=== PATIENT | female | born 1985 | race Caucasian/White ===

== ENCOUNTER → 2017-11-17 13:57 | Outpatient (CLI) | payer BC, OTHER, SELFPAY ==
[2017-11-21 20:08] LABS: HPV Genotype 16, Aptima Negative (Negative)
[2017-11-24 13:02] LABS: HPV APTIMA, High Risk Positive (Negative); HPV Genotype 18,45 Aptima Negative (Negative)
== END ==
PROVIDERS: Visit Provider Obstetrics & Gynecology
DX: Z12.4 Encounter for screening for malignant neoplasm of cervix (principal)
CPT/HCPCS: 88175; G0145

== ENCOUNTER → 2018-01-15 14:03 | Outpatient (CLI) | payer BC, OTHER, SELFPAY ==
--- NOTE | 2018-01-15 | CER_PTH ---
PATIENT: DAWN RICHARDSON LOC: [facility] U#:[id number] AGE/SX: 39/F ROOM: RE01/15/[address]: Dr. Simona Gordon MD : 1985 BED: DIS: SPEC #: [id number] RECD: 01/15/18 14:23 STATUS: JOSH IZAIAH #: [id number] CONRAD: 01/15/18 00:[address]: Simona Britt DEPT: SURGICAL PATHOLOGY RECD BY: Kiel Jovel Tissues: A - Uterine cervix, NOS B - Endocervical Procedures: Surgery Specimen Level IV HEADER OPERATION: Colposcopy with biopsy PRE-OP DIAGNOSIS: Positive HR/HPV; prior history of TIFFANI I TISSUE SUBMITTED: A ? Cervical biopsy, B - ECC MICROSCOPIC DIAGNOSIS A. 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 Chronic inflammation. See comment. B. ECC: Scant fragment of benign endocervical epithelium, blood and mucous, negative for dysplasia. RUSLAN:tanna 01/16/18 COMMENT A. Results from immunohistochemistry ([id number]) for surrogate HPV marker (p16) will be reported separately. Please make reference to previous specimen ([id number]) cervix at 6 o?clock, biopsy and cervix at 12 o?clock, biopsy with diagnosis of HPV change/TIFFANI I and endocervical curettings with diagnosis of disarticulated fragments of squamous epithelium with HPV change. MICROSCOPIC DESCRIPTION Slides are reviewed. GROSS DESCRIPTION A - Received in fixative is one container labeled with the patient's name and designated cervical biopsy. The specimen consists of one irregular fragment of light morley soft tissue that measures 0.3 x 0.3 x 0.1 cm. The specimen is totally submitted in one cassette. B - Received in fixative is one container labeled with the patient's name and designated ECC. The specimen consists of multiple irregular fragments of morley mucoid tissue that in aggregate measure 0.5 x 0.5 x 0.1 cm. The specimen is totally submitted in one cassette. / SJ:tanna 01/15/18 TC:5 CPT: 10672 x2
--- NOTE | 2018-01-15 | IMM_PTH ---
PATIENT: DAWN RICHARDSON LOC: [facility] U#:[id number] AGE/SX: 39/F ROOM: RE01/15/[address]: Dr. Simona Gordon MD : 1985 BED: DIS: SPEC #: [id number] RECD: 01/16/18 11:24 STATUS: JOSH IZAIAH #: [id number] CONRAD: 01/15/18 00:[address]: Simona Britt DEPT: IMMUNOHISTOCHEMISTRY RECD BY: Corie Conklin Tissues: A - Uterine cervix, NOS Procedures: p16 (initial) KI-67 (add) PHYSICIAN & INSTITUTION [place] [id number] SPECIMEN INFORMATION: Tissue Source: A ? Cervical biopsy Clinical Info: Positive HR/HPV; prior history TIFFANI I Specimen Number: [id number] CPT code: 79013, 29672 METHODOLOGY: Deparaffinized sections of prefer/formalin-fixed tissue or PAP/DQ stained slides are incubated with monoclonal/polyclonal antibodies/oligonucleotide probes. Localization is made via biotin free immunoperoxidase method. Appropriate controls are performed and reacted as expected. Results on target cell population are indicated in the following table: RESULTS: ANTIBODY / CLONE RESULT Block A P16 (E6H4) negative Ki-67 (30-9) positive, low These tests were developed and their performance characteristics determined by [facility]. They may not have been cleared or approved by the [place]. Food and Drug Administration. The FDA has determined that such clearance or approval is not necessary. INTERPRETATION: A. Cervical biopsy: Mild squamous dysplasia. RUSLAN:tanna 01/16/18
== END ==
PROVIDERS: Visit Provider Obstetrics & Gynecology
DX: N87.0 Mild cervical dysplasia (principal); R87.810 Cervical high risk human papillomavirus (HPV) DNA test positive
CPT/HCPCS: 88305; 88341; 88342

== ENCOUNTER → 2018-07-31 15:47 | Outpatient (CLI) | payer BC, OTHER, SELFPAY ==
[2018-08-06 14:57] LABS: HPV APTIMA, High Risk Positive (Negative)
== END ==
PROVIDERS: Referring Provider Obstetrics & Gynecology; Visit Provider Obstetrics & Gynecology
DX: Z12.4 Encounter for screening for malignant neoplasm of cervix (principal)
CPT/HCPCS: 87624; 88175; G0145

== ENCOUNTER → 2019-02-01 | Outpatient (CLI) | payer BC, SELFPAY ==
[2019-02-07 14:03] LABS: HPV APTIMA, High Risk Negative (Negative)
== END | disposition home or self-care (01) ==
LOC: LABSPEC 10:19
PROVIDERS: Visit Provider Obstetrics & Gynecology
DX: Z12.4 Encounter for screening for malignant neoplasm of cervix (principal)
CPT/HCPCS: 87624; 88175; G0145

== ENCOUNTER → 2020-03-20 08:36 | Outpatient (CLI) | payer BC, SELFPAY ==
[2020-03-20 09:16] LABS: Absolute Lymphocyte Count 2.38 X10^3/uL (0.83-4.51); Absolute Neutrophil Count 5.1 X10^3/uL (2.0-7.7); Basophil# 0.09 X10^3/uL; Basophil% 1.1 % (0-1); Eosinophil# 0.31 X10^3/uL; Eosinophils% 3.7 % (0-5); Hemoglobin 13.3 g/dL (12.0-15.0); Lymphocyte # 2.38 X10^3/ul (4.0); Lymphocyte % 28.3 % (19-41); Mean Corp Hgb Conc 34.1 g/dL (32-36); Mean Corpuscular Hgb 30.6 pg (27.0-32.0); Mean Corpuscular Volume 89.9 fL (81-99); Mean Platelet Vol. 9.5 fl (6.2-12.0); Monocyte# 0.47 X10^3/uL; Monocyte% 5.6 % (0-10); NRBC Flagged by Analyzer 0 % (0-5); Neutrophil # 5.12 X10^3/uL (2.7-7.7); Neutrophil % 60.9 % (47-70); Platelet Count 305 K/mm3 (150-450); RBC Distribution Width CV 12.4 % (11.6-14.6); RBC Distribution Width SD 40.8 fl (35.1-43.9); Red Blood Count 4.34 M/mm3 (4.2-5.4); White Blood Count 8.4 K/mm3 (4.4-11.0)
[2020-03-20 10:33] LABS: ALB/GLOB Ratio 1.3 RATIO (0.9-2.4); AST(SGOT) 17 U/L (15-37); Alanine Aminotransfer ALT/SGPT 22 U/L (13-56); Alkaline Phosphatase 40 U/L (45-117); Anion Gap 3 (5-15); BUN 10 mg/dL (7-18); BUN/Creat Ratio 11.1 RATIO (10-20); Calcium,Total 8.6 mg/dL (8.5-10.1); Chloride 110 mmol/L (98-107); Cholesterol 163 mg/dL (200); EST Glomerular Filtration Rate 75 mL/min (>60); Est Glom Filt Rate - Afr Amer 91 mL/min (>60); Estradiol 150.6 pg/mL; Follicle Stimulating Hormone 16.8 mIU/mL; Free T3 2.5 pg/mL (2.18-3.98); Globulin 3.1 g/dL (2.2-4.2); Glucose 82 mg/dL (74-106); High Density Lipoprotein 54 mg/dL; Potassium 3.7 mmol/L (3.5-5.1); Protein, Total 7.1 g/dL (6.4-8.2); Sodium Level 141 mmol/L (136-145); T4 Free Direct 1.06 ng/dL (0.76-1.46); Thyroid Stim Hormone (TSH) 2.64 uIU/mL (0.358-3.74); Triglycerides 119 mg/dL; Very Low Density Lipoprotein 24 mg/dL (5-40)
[2020-03-20 11:12] LABS: T3 Total - Triiodothyronine 1.09 ng/mL (0.6-1.81)
[2020-03-23 10:06] LABS: Anti-Mullerian Hormone,Serum 0.399 ng/mL (.)
== END ==
PROVIDERS: Visit Provider Obstetrics & Gynecology
DX: N92.6 Irregular menstruation, unspecified (principal); E28.8 Other ovarian dysfunction
CPT/HCPCS: 36415; 80053; 80061; 82627; 82670; 83001; 83516; 84270; 84403; 84439; 84443; 84480; 84481; 85025; 82626

== ENCOUNTER 2021-08-21 10:20 | Outpatient (CLI) | payer BC, SELFPAY ==
[2021-08-24 18:58] LABS: HPV APTIMA, High Risk Negative (Negative)
== END 2021-08-21 23:59 | disposition short-term general hospital (02) ==
LOC: LABSPEC 10:33
PROVIDERS: Visit Provider Obstetrics & Gynecology
DX: Z12.4 Encounter for screening for malignant neoplasm of cervix (principal)
CPT/HCPCS: 87624; 88175; G0145

== ENCOUNTER → 2025-07-20 | Outpatient (CLI) | payer OTHER, BC, SELFPAY ==
--- NOTE | 2025-07-20 10:28 | RAD_ITS ---
PROCEDURE: WRIST MIN 3 VIEWS 07/20/2025 REASON FOR EXAM: PAIN. PATIENT FELL 3 WEEKS AGO. PAIN IN THE REGION OF THE SCAPHOID. TECHNIQUE: Procedure Code: RADWR Modality: DX Procedure: WRIST MIN 3 VIEWS COMPARISON: No relevant prior. FINDINGS: Bones: A small focal area of periosteal reaction is noted along the lateral margin of the radial styloid. Joints: No subluxations or dislocations. Soft tissues: Unremarkable. RAD/Wrist min 3 Views IMPRESSION: No acute or subacute fractures are identified. However, a small focal area of periosteal reaction is noted along the radial styloid. This may be related to remote trauma. Clinical correlation recommend ed. Reading Location: [facility]
--- OUTSIDE RECORDS SUMMARY | 2025-07-20 10:49 | XMS RPT_ITS | CCD ---
Author Organization [facility] Inform ion Partnership [facility] Care Team Providers Care Extension Service Supervisor Name Role Phone Gertrude VELARDE, Luma Chiang Unavailable [phone] Luís Castillo MD Unavailable [phone] Guero BRAUN, Amish Jefferson Primary Care Provider [phone] Unavailable Primary Care Provider UnavailMELODY Cortes Referring Unavailable Luma Loredo RN Unavailable COREY MUELLER Attending Unavailable Allergies Allergy Classification Reported Allergen(s) Allergy Type Date of Onset Reaction(s) Facility (1 source) ALLERGIES NOT ON FILE; Translations: [ALLERGIES NOT ON FILE] Propensity to adverse reactions (disorder) [facility] 2 Repository Medications Current Medications Medication Drug Class(es) Dates Sig (Normalized) Sig (Original) MULTI-VITAMIN ORAL (3 sources) take 1 tablet by luda th once daily MULTI-VITAMIN ORAL Indications: Left breast cancer with T3 tumor, >5 cm in greatest dimension (HCC) Take 1 tablet by mouth once daily. Active take 1 tablet by mouth once nathen y MULTI-VITAMIN ORAL Indications: Left breast cancer with T3 tumor, >5 cm in greatest dimension (HCC) Take 1 tablet by mouth once daily. 0 Active Comment on above: Take 1 tablet by luda th once daily. Problems Active Problems Problem Classification Problem Date Documented Da te Episodic/Chronic Cancer of breast (7 sources) Malignant neoplasm of upper-outer quadrant of female breast; Translations: [Malignant neoplasm of upper-outer quadrant of left female breast] Onset: 01-31-2015 Chronic Cancer of breast (2 sources) History of malignant neoplasm of breast; Translations: [Personal history of malignant neoplasm of breast] 07-17-2023 Episodic Other connective tissue disease (2 sources) Pain in right foot; Translations: [Pain in right foot] Onset: 12-01-2023 12-01-2023 Episodic Other connective tissue disease (1 source) Pain in right foot; Translations: [Pain in right foot] Onset: 12-01-2023 Episodic Other eye disorders (3 sources) Bilateral vitreous floaters; Translations: [Other vitreous opacities, bilateral] Onset: 01-13-2019 01-13-2019 Chronic Past or Other Problems Problem Classification Problem Date Documented Date Episodic/Chronic Blindness and vision defects (6 sources) Bilateral myopia of eyes; Translations: [Myopia, bilateral] Onset: 04-05-2017 04-05-2017 Episodic Fracture of upper limb (1 source) Closed fracture of base of right fifth metacarpal; Translations: [Nondisplaced fracture of base of fifth metacarpal bone, right hand, initial encounter for closed fracture] Onset: 03-18-2016 Resolved: 02-09-2020 02-09-2020 Episodic Nonmalignant breast conditions (1 source) Lump in left breast; Translations: [Unspecified lump in the left breast, unspecified quadrant] Onset: 12-22-2014 Resolved: 02-09-2020 02-09-2020 Episodic Other eye disorders (3 sources) Tear film insufficiency; Translations: [Dry eye syndrome of bilateral lacrimal glands] Onset: 01-13-2019 01-13-2019 Episodic Residual codes; unclassified (3 sources) Patient encounter status; Translations: [Encounter for prophylactic removal of breast] Onset: 02-23-2015 02-23-2015 Episodic Residual codes; unclassified (3 sources) History of photorefractive keratectomy; Translations: [Other specified postprocedural states] Onset: 05-10-2017 01-19-2020 Episodic Residual codes; unclassified (1 source) Postoperative state; Translations: [Other specified postprocedural states] Onset: 04-29-2015 Resolved: 02-09-2020 02-09-2020 Episodic Results Test Name Value Interpretation Reference Range Facil fiona PETEROVSFuentes 2024 CNOVSP Visit (SP) Office (HEMAWS) DAWN RICHARDSON ([id number]) 1985 F Date Time Provider Department 07/16/24 8:00 AM COREY MUELLER During your visit today, we recorded the following information about you: Temperature Pulse Blood pressure Weight 98.1 degrees 72/minute 140/96 77.8 kg Corey Mueller APRN.CNP 2024 10:59 AM Signed Chief Complaint Patient presents with: Established Patient HPI: Dawn Richardson is a 39 year old female who presents here today for follow up breast cancer. Per Dr. Tapia's previous note: H/o appreciated a mass in her left breast May 2014. Was on OCPs. Biopsy 12/22/2014: Invasive ductal carcinoma, nuclear grade 2. ER/VA (>95%/72%, both moderate) HER 1-2+; FISH equivocal. MRI revealed additional suspicious areas in left AND right breast. Genetic testing negative. Oncotyping: Low Risk, Score: 19 (low end of Intermediate Range) S/p bilateral nipple sparing mastectomy (prophylactic R) and [facility]. S/p bilateral tissue cmo exchange to implant performed on 06/30/[address] Castillo's note: There is concern related to her young age, but her Recurrence Score is the lowest possible in the intermediate range. We discussed the options of chemotherapy followed by endocrine therapy, endocrine therapy alone with tamoxifen, or endocrine therapy alone with ovarian suppression + aromatase inhibitor. As her tumor is at the lowest end of the intermediate risk range the value of chemotherapy would be small, and as the TEXT/SOFT data indicate that tamoxifen alone provides an outcome similar to that of ovarian suppression + AI in low risk women, a mutual decision was made to proceed with treatment with endocrine therapy alone. We discussed her interrupting tamoxifen therapy in 5 years in order to attempt . Previous therapy:tamoxifen. Began 02/2015 Completed 5 years of therapy. No new concerns today. Appetite:It's great. Energy level:It's good. works FT-now on day shift Denies fevers or recent illness. Resp:denies cough or sob Cardiac:denies chest pain/palpitations GI:deneis abd pain, n/v, moving bowels regularly :denies dysuria/hematuria Extrem:denies pain to back/bones/joints Endo:denies hot flashes Neuro:denies symptoms of neuropathy Skin:denies rashes/lesions Heme:denies bleeding, LMP-they come when they want. Due for WEATHER STRIP INSTALLER. The ROS is otherwise negative. Past medical history, appointments, medications, allergies reviewed. No changes. EXAM: BP 140/96 Pulse 72 Temp 36.7 ?C (98.1 ?F) (Temporal) Wt 77.8 kg (171 lb 8.3 oz) LMP 03/09/2016 SpO2 99% BMI 24.61 kg/m? APPEARANCE Well appearing, alert, in no acute distress, well-hydrated, well nourished. HEART RRR with normal S1 and S2, no murmurs LUNG clear to auscultation BREAST FEMALE b/l recon/implants, no surrounding mass/nodule LYMPH NODES No cervical lymphadenopathy, No supraclavicular lymphadenopathy, and No axillary lymphadenopathy. ABDOMEN bowel sounds normoactive, soft, non-tender EXTREMITIES No edema NEURO Awake, alert and oriented x 3, Normal gait, and No involuntary motions. SKIN Skin color, texture, turgor normal, no suspicious rashes or lesions ASSESSMENT/PLAN: 1. Encounter for follow-up surveillance of breast cancer - ICD9: V67.9, V10.3, ICD10: Z08, Z85.3 Pathologic Stage IA ([id number]) ER+, VA+, HER2-negative Grade 2 invasive ductal carcinoma. - No concerning findings on exam. - Tamoxifen-tolerated well. Completed 5 years of treatment. - Follow up with WEATHER STRIP INSTALLER. - Follow up in one year. - Pt. aware to call office with any questions/concerns. The sensitive examination was discussed with the Patient or Patient's Authorized Osteopathic Resident. As applicable, any other physician, advance practice provider, medical student, or other health professional student that will be observing or involved in the sensitive examination for educational or training purposes was discussed with the Patient or Authorized Osteopathic Resident. The Patient or Authorized Osteopathic Resident has agreed to proceed with the sensitive examination. (Sensitive examination includes inspection and/or palpation of the breasts, pelvis, prostate and anorectal regions) The patient indicates understanding of these issues and agrees with the plan. All documentation from previous visit of 07/17/23-Dr. Tapia/myself was copied and pasted, documentation has been reviewed and edited as necessary for today's visit. Corey Mueller APRN.BULL FIDDLE PLAYER Allergies As of Date: 2024 (No Known Allergies) Date Reviewed: 2024 Reviewed by: Corey Mueller APRN.BULL FIDDLE PLAYER - Fully Assessed Reason for Visit: Established Patient [175] Primary Visit Diagnosis:Encounter for follow-up surveillance of breast cancer [Z08, Z85.3] Follow-up and Disposit (more content not included)... Normal [facility] XR FOOT RIGHT 3+ VIEWSon XR FOOT RIGHT 3+ VIEWS Interpreted By: Dixon Neves, STUDY: XR FOOT RIGHT 3+ VIEWS; ; 12/01/2023 4:19 pm INDICATION: Signs/Symptoms:RIGHT FOOT PAIN. COMPARISON: None. ACCESSION NUMBER(S): [id number] ORDERING CLINICIAN: MELODY SANCHEZ FINDINGS: Three views of the right foot were provided. No acute fracture or malalignment. 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 Prominent posterior process of the calcaneus/os trigonum. Small plantar calcaneal spur. Soft tissues are unremarkable. IMPRESSION: 1. No acute osseous abnormality of the right foot. 2. Chronic findings as above. MACRO: None Signed by: Dixon Neves 12/05/2023 1:58 PM Dictation workstation: [id number] [facility] Comment on above: Order Comment: STANDING PAP IG HPV APTIMA 16/18,45on 08-24-2021 ADEQ Comment Normal . [facility] Comment on above: Order Comment: CYTOLOGY INFORMATION: - CLINICAL INFORMATION: ANNUAL - Non - DATE LMP/MENOPAUSE: 08/08/21 LMP - COLLECTION VIAL: Thin Prep Vial - WEATHER STRIP INSTALLER SOURCE: CERVICAL/ENDOCERVICAL - COLLECTION TECHNIQUE: BRUSH/SPATULA Specimen Comment: [id number] Specimen Comment: No. of containers..01 ThinPrep Vial Result Comment: Sati sfactory for evaluation. Endocervical and/or squamous metaplastic cells (endocervical component) are present. Performed By: #### L 7400.0280 #### [facility] [address] [place], [place], [address] COMMENT Comment Normal . [facility] Comment on above: Order Comment: CYTOLOGY INFORMATION: - CLINICAL INFORMATION: ANNUAL - Non - DATE LMP/MENOPAUSE: 08/08/21 LMP - COLLECTION VIAL: Thin Prep Vial - WEATHER STRIP INSTALLER SOURCE: CERVICAL/ENDOCERVICAL - COLLECTION TECHNIQUE: BRUSH/SPATULA Specimen Comment: [id number] Specimen Comment: No. of containers..01 ThinPrep Vial Result Comment: This liquid based ThinPrep(R) pap test was screened with the use of an image guided system. Performed By: #### L 7400.0280 #### [facility] [address] [place], [place], [address] DIAG Comment Normal . [facility] Comment on above: Order Comment: CYTOLOGY INFORMATION: - CLINICAL INFORMATION: ANNUAL - Non - DATE LMP/MENOPAUSE: 08/08/21 LMP - COLLECTION VIAL: Thin Prep Vial - WEATHER STRIP INSTALLER SOURCE: CERVICAL/ENDOCERVICAL - COLLECTION TECHNIQUE: BRUSH/SPATULA Specimen Comment: [id number] Specimen Comment: No. of containers..01 ThinPrep Vial Result Comment: NEGA TIVE FOR INTRAEPITHELIAL LESION OR MALIGNANCY. Performed By: #### L [id number] #### [facility] [address] [place], [place], [address] HPV APTIMA, HR Negative Normal Negative [facility] Comment on above: Order Comment: CYTOLOGY INFORMATION: - CLINICAL INFORMATION: ANNUAL - Non - DATE LMP/MENOPAUSE: 08/08/21 LMP - COLLECTION VIAL: Thin Prep Vial - WEATHER STRIP INSTALLER SOURCE: CERVICAL/ENDOCERVICAL - COLLECTION TECHNIQUE: BRUSH/SPATULA Specimen Comment: [id number] Specimen Comment: No. of containers..01 ThinPrep Vial Result Comment: This nucleic acid amplification test detects fourteen high- risk HPV types (16,18,31,33,35,39,45,51,52,56,58,59,66,68) without differentiation. Performed at: [address] [id number] Senior Electrical Estimator: Yasmine Gutiérrez MD, Phone: [phone] Performed at: =[address] [id number] Senior Electrical Estimator: Yasmine Gutiérrez MD, Phone: [phone] Performed By: #### L [id number] #### [facility] [address] [place], [place], [id number] PAPSMR Comment Normal . [facility] Comment on above: Order Comment: CYTOLOGY INFORMATION: - CLINICAL INFORMATION: ANNUAL - Non - DATE LMP/MENOPAUSE: 08/08/21 LMP - COLLECTION VIAL: Thin Prep Vial - WEATHER STRIP INSTALLER SOURCE: CERVICAL/ENDOCERVICAL - COLLECTION TECHNIQUE: BRUSH/SPATULA Specimen Comment: [id number] Specimen Comment: No. of containers..01 ThinPrep Vial Result Comment: The Pap smear is a screening test designed to aid in the detection of premalignant and malignant conditions of the uterine cervix. It is not a diagnostic procedure and should not be used as the sole means of detecting cervical cancer. Both false-positive and false-negative reports do occur. Performed By: #### L [id number] #### [facility] [address] [place], [place], [id number] PERFORM Comment Normal . [facility] Comment on above: Order Comment: CYTOLOGY INFORMATION: - CLINICAL INFORMATION: ANNUAL - Non - DATE LMP/MENOPAUSE: 08/08/21 LMP - COLLECTION VIAL: Thin Prep Vial - WEATHER STRIP INSTALLER SOURCE: CERVICAL/ENDOCERVICAL - COLLECTION TECHNIQUE: BRUSH/SPATULA Specimen Comment: [id number] Specimen Comment: No. of containers..01 ThinPrep Vial Result Comment: Blanca Valles, [employer] Unified Communications Engineer (ASCP) Performed By: #### L [id number] #### [facility] [address] [place], [place], [id number] COMM . Normal . [facility] Comment on above: Order Comment: CYTOLOGY INFORMATION: - CLINICAL INFORMATION: ANNUAL - Non - DATE LMP/MENOPAUSE: 08/08/21 LMP - COLLECTION VIAL: Thin Prep Vial - WEATHER STRIP INSTALLER SOURCE: CERVICAL/ENDOCERVICAL - COLLECTION TECHNIQUE: BRUSH/SPATULA Specimen Comment: [id number] Specimen Comment: No. of containers..01 ThinPrep Vial Performed By: #### L [id number] #### [facility] [address] [place], [address] Vital Signs Date Time Vital Sign Value Performing Clinician Hafsa watts 2024 08:10-0500 Body mass index (BMI) [Ratio] 24.61 kg/m2 Corey Mueller FURNITURE UPHOLSTERY MECHANIC.BULL FIDDLE PLAYER Work Phone: [facility] 2024 08:10-0500 Body temperature 98.1 [degF] Corey Mueller FURNITURE UPHOLSTERY MECHANIC.BULL FIDDLE PLAYER Work Phone: [facility] 2024 08:10-0500 Body weight 77.8 kg Corey Mueller FURNITURE UPHOLSTERY MECHANIC.BULL FIDDLE PLAYER Work Phone: [facility] 2024 08:10-0500 Diastolic blood pressure 96 mm[Hg] Corey Mueller FURNITURE UPHOLSTERY MECHANIC.BULL FIDDLE PLAYER Work Phone: [facility] 2024 08:10-0500 Heart rate 72 /min Corey Mueller FURNITURE UPHOLSTERY MECHANIC.BULL FIDDLE PLAYER Work Phone: [facility] 2024 08:10-0500 SaO2% (BldA) [Mass fraction] 99 % Corey Mueller FURNITURE UPHOLSTERY MECHANIC.BULL FIDDLE PLAYER Work Phone: [facility] 2024 08:10-0500 Systolic blood pressure 140 mm[Hg] Corey Mueller FURNITURE UPHOLSTERY MECHANIC.BULL FIDDLE PLAYER Work Phone: [facility] 07-17-2023 08:20-0500 Body height 177.8 cm Corey Mueller FURNITURE UPHOLSTERY MECHANIC.BULL FIDDLE PLAYER Work Phone: [facility] 07-17-2023 08:20-0500 Body temperature 98.71 [degF] Corey Mueller FURNITURE UPHOLSTERY MECHANIC.BULL FIDDLE PLAYER Work Phone: [facility] 07-17-2023 08:20-0500 Body weight 73.94 kg Corey Mueller FURNITURE UPHOLSTERY MECHANIC.BULL FIDDLE PLAYER Work Phone: [facility] 07-17-2023 08:20-0500 Diastolic blood pressure 98 mm[Hg] Corey Mueller FURNITURE UPHOLSTERY MECHANIC.BULL FIDDLE PLAYER Work Phone: [facility] 07-17-2023 08:20-0500 Heart rate 69 /min Corey Mueller FURNITURE UPHOLSTERY MECHANIC.BULL FIDDLE PLAYER Work Phone: [facility] 07-17-2023 08:20-0500 SaO2% (BldA) [Mass fraction] 100 % Corey Mueller FURNITURE UPHOLSTERY MECHANIC.BULL FIDDLE PLAYER Work Phone: [facility] 07-17-2023 08:20-0500 Systolic blood pressure 157 mm[Hg] Corey Mueller FURNITURE UPHOLSTERY MECHANIC.BULL FIDDLE PLAYER Work Phone: [facility] 07-31-2022 08:22-0500 Diastolic blood pressure 82 mm[Hg] Corey Reinosoenter FURNITURE UPHOLSTERY MECHANIC.BULL FIDDLE PLAYER Work Phone: [facility] 07-31-2022 08:22-0500 Heart rate 54 /min Corey Mueller FURNITURE UPHOLSTERY MECHANIC.BULL FIDDLE PLAYER Work Phone: [facility] 07-31-2022 08:22-0500 Systolic blood pressure 130 mm[Hg] Croey Reinosoenter FURNITURE UPHOLSTERY MECHANIC.BULL FIDDLE PLAYER Work Phone: [facility] 07-31-2022 08:01-0500 Body temperature 98.01 [degF] Corey Mueller FURNITURE UPHOLSTERY MECHANIC.BULL FIDDLE PLAYER Work Phone: [facility] 07-31-2022 08:01-0500 Body weight 68.72 kg Corey Mueller FURNITURE UPHOLSTERY MECHANIC.BULL FIDDLE PLAYER Work Phone: [facility] Encounters Encounter Date Encounter Type Care Provider Facility Start: 2024 End: 2024 ambulatory COREY MUELLER Facility:[facility] Start: 2024 End: 2024 Follow-up encounter Corey Mueller APRN.BULL FIDDLE PLAYER Work Phone: Hematology/Oncology Comment on above: Encounter for follow -up surveillance of breast cancer (Primary Dx) Start: 2024 End: 2024 Patient encounter procedure [place] Mueller FURNITURE UPHOLSTERY MECHANIC.BULL FIDDLE PLAYER Work Phone: Hematology/Oncology Start: 12-01-2023 End: 12-02-2023 ambulatory MELODY SANCHEZ [facility] Start: 12-01-2023 End: 12-01-2023 Subsequent hospital visit by physician Miguel [id number] X-Ray [facility] Comment on above: Pain in right foot Start: 07-17-2023 End: 07-17-2023 ambulatory Corey Mueller FURNITURE UPHOLSTERY MECHANIC.BULL FIDDLE PLAYER Work Phone: Hematology/Oncology Comment on above: Personal history of breast cancer (Primary Dx) Start: 07-17-2023 End: 07-17-2023 Patient encounter procedure Corey Mueller APRN.BULL FIDDLE PLAYER Work Phone: [facility] Start: 07-31-2022 End: 07-31-2022 ambulatory Corey Mueller FURNITURE UPHOLSTERY MECHANIC.BULL FIDDLE PLAYER Work Phone: Hematology/Oncology Comment on above: Malignant neoplasm o f upper-outer quadrant of left breast in female, estrogen receptor positive (HCC) (Primary Dx) Start: 07-31-2022 End: 07-31-2022 Patient encounter procedure Corey Mueller APRN.BULL FIDDLE PLAYER Work Phone: [facility] Procedures Date Procedure Procedure Detail Performing Clinician Start: 12-01-2023 XR FOOT RIGHT 3+ VIEWS MELODY SANCHEZ Plan of Treatment Date Care Activity Detail Author Start: 2033 Zoster Vaccines (1 of 2) Zoste r Vaccines (1 of 2) [facility] Start: 02-08-2027 DTaP/Tdap/Td Vaccine s (2 - Td or Tdap) DTaP/Tdap/Td Vaccines (2 - Td or Tdap) [facility] Start: 02-08-2027 Urine microalbumin profile [facility] Start: 07-18-2025 End: 07-18-2025 ambulatory 07/18/2025 8:00 AM EST Visit (SP) Office Hematology/Oncology [address] [place] [address] Corey Mueller APRN.BULL FIDDLE PLAYER [address] [place] [address] 1 YR OV* Hematology/Oncology Comment on above: 1 YR OV* Start: 03-28-2024 Covid-19 Vaccine ( season) Covid-19 Vaccine ( season) [facility] Start: 03-28-2024 Influenza vaccination [facility] Start: 2023 Screening for malign ant neoplasm of breast Mammogram Screening [facility] Start: 03-28-2023 Covid-19 Vaccine ( season) Covid-19 Vaccine () [facility] Start: 03-28-2023 Influenza vaccination Influenza Vacc ine (#1) [facility] Start: 07-28-2022 DEPRESSION ASSESSMENT DEPRESSION ASS ESSMENT [facility] Start: 03-28-2022 Influenza vaccination INFLUENZA (#1) [facility] Start: 10-12-2021 COVID-19 VACCINE (2 - Booster for Sarah series) COVID-19 VACCINE (2 - Booster for Sarah series) [facility] Start: 09-25-2020 HPV TESTING HPV TESTING [facility] Start: 09-25-2020 PAP TESTING PAP TESTING [facility] Start: 09-25-2020 Screening for malign ant neoplasm of cervix [facility] Start: 09-25-2018 Screening for malign ant neoplasm of cervix Cervical Cancer Screening [facility] Start: 2004 Screening for malign ant neoplasm of cervix [facility] Start: 2002 Hepatitis B Vaccine (1 of 3 - 19+ 3-dose series) Hepatitis B Vaccine (1 of 3 - 19+ 3-dose series) [facility] Start: 2002 Hepatitis B Vaccines (1 of 3 - 19+ 3-dose series) Hepatitis B Vaccines (1 of 3 - 19+ 3-dose series) [facility] Start: 2001 Anxiety Screening Anxiety Screening [facility] Start: 2001 Depression Screening Depression Scre ening [facility] Start: 2001 HEPATITIS C SCREENING HEPATITIS C [facility] Start: 2001 Hepatitis C screening Hepatitis C [facility] Start: 2001 HIV SCREENING HIV SCREENING [facility] Start: 2001 HIV screening HIV Screening [facility] Start: 1996 Varicella vaccination Varicell a Vaccines (1 of 2 - 13+ 2-dose series) [facility] Start: 1984 MMR Vaccines (1 of 1 - Standard series) MMR Vaccines (1 of 1 - Standard series) [facility] Start: 1983 HEPATITIS B (1 of 3 - 3-dose series) HEPATITIS B (1 of 3 - 3-dose series) [facility] Start: 1985 Hepatitis B Vaccine (1 of 3 - 3-dose series) Hepatitis B Vaccine (1 of 3 - 3-dose series) [facility] Start: 1985 HIV screening HIV Screening [facility] Start: 1983 Lipid panel Lipid Panel [facility] Start: 1985 [facility] End: 12-01-2023 XR Foot - right 3 Views [employer] Work Phone: Comment on above: Once for 1 Occurrenc es starting 12/01/2023 until 12/01/2023 [facility] Immunizations Immunization Date Immunization Notes Care Provider Bhupendra harley 02-08-2017 tetanus toxoid, redu brittany diphtheria toxoid, and acellular pertussis vaccine, adsorbed Corey Mueller FURNITURE UPHOLSTERY MECHANIC.BULL FIDDLE PLAYER Work Phone: [facility] Work Phone: Payers Date Payer Category Payer Unknown [id number] 2021 Unknown [id number] 1985 Unknown [id number] Social History Date Type Detail Facility Start: 06-15-2015 Tobacco smoking status NHIS Ex-smoker [facility] Start: 12-29-2004 End: 12-29-2014 History of tobacco use Current smoker [facility] Start: 12-29-2004 End: 12-29-2014 History of tobacco use Cigarette Smoker [facility] Start: 06-15-2015 End: 07-17-2023 Cigarettes smoked current (pack per day) - Reported 0.5 [facility] Start: 06-15-2015 Tobacco use and exposure Smokeless tobacco non-user [facility] Start: 07-31-2022 End: 2024 Alcohol intake Current non-drinker of alcohol (finding) [facility] Start: 02-07-2020 End: 02-09-2020 History SDOH Alcohol Frequency 2 [facility] Start: 02-07-2020 End: 02-09-2020 History SDOH Alcohol Std Drinks 1 [facility] Start: 02-07-2020 History SDOH Social Connections Living 5 [facility] Start: 02-07-2020 History SDOH Physical Activity MPS 3 [facility] Start: 02-09-2020 History SDOH [facility] 4 [facility] [facility] Start: 02-06-2020 Education 15 [facility] Start: 01-06-2018 Alcohol Comment rare occassion [facility] Start: 1985 Sex Assigned At Not on file [facility] Start: 02-06-2020 End: 07-17-2023 Social connection and isolation panel [facility] Do you belong to any clubs or organizations such as mandaeism groups, unions, fraternal or athletic groups, or school groups? No [facility] Are you now , , , , never or living with a partner? [facility] How often to you hav e a drink containing alcohol? Monthly or less [facility] How many standard dr inks containing alcohol do you have on a typical day? 1 or 2 [facility] How often do you hav e 6 or more drinks on 1 occasion? Never [facility] How hard is it for y ou to pay for the very basics like food, housing, medical care, and heating Not very hard [facility] Work Phone: Adult Depression Screening Assessment 0 [facility] Do you feel stress - tense, restless, nervous, or anxious, or unable to sleep at night because your mind is troubled all the time - these days [OSQ] Only a little [facility] (I/We) worried fany er (my/our) food would run out before (I/we) got money to buy more. Never true [facility] Work Phone: Tobacco smoking stat us NYIS Tobacco smoking consumption unknown [facility] Work Phone: Start: 11-21-2023 End: 12-01-2023 Exposure to SARS-CoV-2 (event) Not sure [facility] Medical Equipment Procedure Code Equipment Code Equipment Origin al Text Equipment Identifier Dates Exp Tiss 350ml Styl 9200 Txt M - [id number] Start: 02-15-2015 Imp Brst 400ml Smth Chsv I - [id number] Start: 06-30-2015 Comment on above: Description: C1789 I MP BRST 400ML SMTH CHSV I Exp Tiss 350ml Styl 9200 Txt M - [id number] Start: 02-15-2015 Imp Brst 430ml Smth Chsv I - [id number] Start: 06-30-2015 Comment on above: Description: C1789 I MP BRST 430ML SMTH CHSV I Progress note 2024 Note Date & Type Note Facility 2024 Note HNO ID: [id number] Author: COREY MUELLER APRN.[employer] Service: ? Author Type: Nurse Practitioner Type: Progress Notes Filed: 2024 10:59 Note Text: Chief Complaint Patient presents with: Established Patient HPI: Dawn Richardson is a 39 year old female who presents here today for follow up breast cancer. Per Dr. Tapia's previous note: H/o appreciated a mass in her left breast May 2014. Was on OCPs. Biopsy 12/22/2014: Invasive ductal carcinoma, nuclear grade 2. ER/VA (>95%/72%, both moderate) HER 1-2+; FISH equivocal. MRI revealed additional suspicious areas in left AND right breast. Genetic testing negative. Oncotyping: Low Risk, Score: 19 (low end of Intermediate Range) S/p bilateral nipple sparing mastectomy (prophylactic R) and reconstruction with tissue expanders on 02/15/15 [facility]. S/p bilateral tissue cmo exchange to implant performed on 06/30/[address] Castillo's note: There is concern related to her young age, but her Recurrence Score is the lowest possible in the intermediate range. We discussed the options of chemotherapy followed by endocrine therapy, endocrine therapy alone with tamoxifen, or endocrine therapy alone with ovarian suppression + aromatase inhibitor. As her tumor is at the lowest end of the intermediate risk range the value of chemotherapy would be small, and as the TEXT/SOFT data indicate that tamoxifen alone provides an outcome similar to that of ovarian suppression + AI in low risk women, a mutual decision was made to proceed with treatment with endocrine therapy alone. We discussed her interrupting tamoxifen therapy in 5 years in order to attempt . Previous therapy:tamoxifen. Began 02/2015 Completed 5 years of therapy. No new concerns today. Appetite:It's great. Energy level:It's good. works FT-now on day shift Denies fevers or recent illness. Resp:denies cough or sob Cardiac:denies chest pain/palpitations GI:deneis abd pain, n/v, moving bowels regularly :denies dysuria/hematuria Extrem:denies pain to back/bones/joints Endo:denies hot flashes Neuro:denies symptoms of neuropathy Skin:denies rashes/lesions Heme:denies bleeding, LMP-they come when they want. Due for WEATHER STRIP INSTALLER. The ROS is otherwise negative. Past medical history, appointments, medications, allergies reviewed. No changes. EXAM: BP 140/96 Pulse 72 Temp 36.7 ?C (98.1 ?F) (Temporal) Wt 77.8 kg (171 lb 8.3 oz) LMP 03/09/2016 SpO2 99% BMI 24.61 kg/m? APPEARANCE Well appearing, alert, in no acute distress, well-hydrated, well nourished. HEART RRR with normal S1 and S2, no murmurs LUNG clear to auscultation BREAST FEMALE b/l recon/implants, no surrounding mass/nodule LYMPH NODES No cervical lymphadenopathy, No supraclavicular lymphadenopathy, and No axillary lymphadenopathy. ABDOMEN bowel sounds normoactive, soft, non-tender EXTREMITIES No edema NEURO Awake, alert and oriented x 3, Normal gait, and No involuntary motions. SKIN Skin color, texture, turgor normal, no suspicious rashes or lesions ASSESSMENT/PLAN: 1. Encounter for follow-up surveillance of breast cancer - ICD9: V67.9, V10.3, ICD10: Z08, Z85.3 Pathologic Stage IA ([id number]) ER+, VA+, HER2-negative Grade 2 invasive ductal carcinoma. - No concerning findings on exam. - Tamoxifen-tolerated well. Completed 5 years of treatment. - Follow up with WEATHER STRIP INSTALLER. - Follow up in one year. - Pt. aware to call office with any questions/concerns. The sensitive examination was discussed with the Patient or Patient's Authorized Osteopathic Resident. As applicable, any other physician, advance practice provider, medical student, or other health professional student that will be observing or involved in the sensitive examination for educational or training purposes was discussed with the Patient or Authorized Osteopathic Resident. The Patient or Authorized Osteopathic Resident has agreed to proceed with the sensitive examination. (Sensitive examination includes inspection and/or palpation of the breasts, pelvis, prostate and anorectal regions) The patient indicates understanding of these issues and agrees with the plan. All documentation from previous visit of 07/17/23-Dr. Tapia/myself was copied and pasted, documentation has been reviewed and edited as necessary for today's visit. oCrey Mueller APRN.EROS [facility] History of Present illness Narrative 2024 Corey Mueller APRN.EROS - 2024 8:24 AM EST Note Date & Type Note Facility 2024 History of Presen t illness Narrative Chief Complaint Patient presents with: Established Patient HPI: Dawn Richardson is a 39 year old female who presents here today for follow up breast cancer. Per Dr. Tapia's previous note: H/o appreciated a mass in her left breast May 2014. Was on OCPs. Biopsy 12/22/2014: Invasive ductal carcinoma, nuclear grade 2. ER/VA (>95%/72%, both moderate) HER 1-2+; FISH equivocal. MRI revealed additional suspicious areas in left AND right breast. Genetic testing negative. Oncotyping: Low Risk, Score: 19 (low end of Intermediate Range) S/p bilateral nipple sparing mastectomy (prophylactic R) and [facility]. S/p bilateral tissue cmo exchange to implant performed on 06/30/[address] Castillo's note: There is concern related to her young age, but her Recurrence Score is the lowest possible in the intermediate range. We discussed the options of chemotherapy followed by endocrine therapy, endocrine therapy alone with tamoxifen, or endocrine therapy alone with ovarian suppression + aromatase inhibitor. As her tumor is at the lowest end of the intermediate risk range the value of chemotherapy would be small, and as the TEXT/SOFT data indicate that tamoxifen alone provides an outcome similar to that of ovarian suppression + AI in low risk women, a mutual decision was made to proceed with treatment with endocrine therapy alone. We discussed her interrupting tamoxifen therapy in 5 years in order to attempt . Previous therapy:tamoxifen. Began 02/2015 Completed 5 years of therapy. No new concerns today. Appetite:It's great. Energy level:It's good. works FT-now on day shift Denies fevers or recent illness. Resp:denies cough or sob Cardiac:denies chest pain/palpitations GI:deneis abd pain, n/v, moving bowels regularly :denies dysuria/hematuria Extrem:denies pain to back/bones/joints Endo:denies hot flashes Neuro:denies symptoms of neuropathy Skin:denies rashes/lesions Heme:denies bleeding, LMP-they come when they want. Due for WEATHER STRIP INSTALLER. The ROS is otherwise negative. Past medical history, appointments, medications, allergies reviewed. No changes. EXAM: BP 140/96 Pulse 72 Temp 36.7 C (98.1 F) (Temporal) Wt 77.8 kg (171 lb 8.3 oz) LMP 03/09/2016 SpO2 99% BMI 24.61 kg/m APPEARANCE Well appearing, alert, in no acute distress, well-hydrated, well nourished. HEART RRR with normal S1 and S2, no murmurs LUNG clear to auscultation BREAST FEMALE b/l recon/implants, no surrounding mass/nodule LYMPH NODES No cervical lymphadenopathy, No supraclavicular lymphadenopathy, and No axillary lymphadenopathy. ABDOMEN bowel sounds normoactive, soft, non-tender EXTREMITIES No edema NEURO Awake, alert and oriented x 3, Normal gait, and No involuntary motions. SKIN Skin color, texture, turgor normal, no suspicious rashes or lesions ASSESSMENT/PLAN: 1. Encounter for follow-up surveillance of breast cancer - ICD9: V67.9, V10.3, ICD10: Z08, Z85.3 Pathologic Stage IA ([id number]) ER+, VA+, HER2-negative Grade 2 invasive ductal carcinoma. - No concerning findings on exam. - Tamoxifen-tolerated well. Completed 5 years of treatment. - Follow up with WEATHER STRIP INSTALLER. - Follow up in one year. - Pt. aware to call office with any questions/concerns. The sensitive examination was discussed with the Patient or Patient's Authorized Osteopathic Resident. As applicable, any other physician, advance practice provider, medical student, or other health professional student that will be observing or involved in the sensitive examination for educational or training purposes was discussed with the Patient or Authorized Osteopathic Resident. The Patient or Authorized Osteopathic Resident has agreed to proceed with the sensitive examination. (Sensitive examination includes inspection and/or palpation of the breasts, pelvis, prostate and anorectal regions) The patient indicates understanding of these issues and agrees with the plan. All documentation from previous visit of 07/17/23-Dr. Tapia/myself was copied and pasted, documentation has been reviewed and edited as necessary for today's visit. Corey Mueller APRN.[employer] documented in this encounter [facility] History of Present illness Narrative 07-17-2023 Corey Mueller APRN.CNP - 07/17/2023 8:25 AM EST Note Date & Type Note Facility 07-17-2023 History of Presen t illness Narrative Chief Complaint Patient presents with: Establish Care: 1 year office visit HPI: Dawn Richardson is a 38 year old female who presents here today for follow up breast cancer. Per Dr. Tapia's previous note: H/o appreciated a mass in her left breast May 2014. Was on OCPs. Biopsy 12/22/2014: Invasive ductal carcinoma, nuclear grade 2. ER/VA (>95%/72%, both moderate) HER 1-2+; FISH equivocal. MRI revealed additional suspicious areas in left AND right breast. Genetic testing negative. Oncotyping: Low Risk, Score: 19 (low end of Intermediate Range) S/p bilateral nipple sparing mastectomy (prophylactic R) and reconstruction with tissue expanders on 02/15/15 [facility]. S/p bilateral tissue cmo exchange to implant performed on 06/30/[address] Castillo's note: There is concern related to her young age, but her Recurrence Score is the lowest possible in the intermediate range. We discussed the options of chemotherapy followed by endocrine therapy, endocrine therapy alone with tamoxifen, or endocrine therapy alone with ovarian suppression + aromatase inhibitor. As her tumor is at the lowest end of the intermediate risk range the value of chemotherapy would be small, and as the TEXT/SOFT data indicate that tamoxifen alone provides an outcome similar to that of ovarian suppression + AI in low risk women, a mutual decision was made to proceed with treatment with endocrine therapy alone. We discussed her interrupting tamoxifen therapy in 5 years in order to attempt . Previous therapy:tamoxifen. Began 02/2015 Completed 5 years of therapy. No new concerns today. Appetite:It's great. Energy level:It's good. works FT-now on day shift Denies fevers or recent illness. Resp:denies cough or sob Cardiac:denies chest pain/palpitations GI:deneis abd pain, n/v, moving bowels regularly :denies dysuria/hematuria Extrem:denies pain to back/bones/joints Endo:denies hot flashes Neuro:denies symptoms of neuropathy Skin:denies rashes/lesions Heme:denies bleeding, LMP-they do whatever they want-up to date on WEATHER STRIP INSTALLER exam-has WEATHER STRIP INSTALLER appt. tomorrow The ROS is otherwise negative. Past medical history, appointments, medications, allergies reviewed. No changes. EXAM: BP 157/98 Pulse 69 Temp 37.1 C (98.7 F) Ht 177.8 cm (5' 10) Wt 73.9 kg (163 lb) LMP 03/09/2016 SpO2 100% BMI 23.39 kg/m APPEARANCE Well appearing, alert, in no acute distress, well-hydrated, well nourished. HEART RRR with normal S1 and S2, no murmurs LUNG clear to auscultation BREAST FEMALE b/l recon/implants, no surrounding mass/nodule LYMPH NODES No cervical lymphadenopathy, No supraclavicular lymphadenopathy, and No axillary lymphadenopathy. ABDOMEN bowel sounds normoactive, soft, non-tender EXTREMITIES No edema NEURO Awake, alert and oriented x 3, Normal gait, and No involuntary motions. SKIN Skin color, texture, turgor normal, no suspicious rashes or lesions ASSESSMENT/PLAN: 1. Personal history of breast cancer - ICD9: V10.3, ICD10: Z85.3 Pathologic Stage IA ([id number]) ER+, VA+, HER2-negative Grade 2 invasive ductal carcinoma. - No concerning findings on exam. - Tamoxifen-tolerated well. Completed 5 years of treatment. - Follow up with WEATHER STRIP INSTALLER as scheduled. - Follow up in one year. - Pt. aware to call office with any questions/concerns. The patient indicates understanding of these issues and agrees with the plan. All documentation from previous visit of 07/31/22-Dr. Tapia/myself was copied and pasted, documentation has been reviewed and edited as necessary for today's visit. Corey Mueller APRN.EROS documented in this encounter [facility] History of Present illness Narrative 07-31-2022 Corey Mueller APRN.CNP - 07/31/2022 8:07 AM EST Note Date & Type Note Facility 07-31-2022 History of Presen t illness Narrative Chief Complaint Patient presents with: Established Patient HPI: Dawn Richardson is a 37 year old female who presents here today for follow up breast cancer. Per Dr. Tapia's previous note: H/o appreciated a mass in her left breast May 2014. Was on OCPs. Biopsy 12/22/2014: Invasive ductal carcinoma, nuclear grade 2. ER/VA (>95%/72%, both moderate) HER 1-2+; FISH equivocal. MRI revealed additional suspicious areas in left AND right breast. Genetic testing negative. Oncotyping: Low Risk, Score: 19 (low end of Intermediate Range) S/p bilateral nipple sparing mastectomy (prophylactic R) and reconstruction with tissue expanders on 02/15/15 [facility]. S/p bilateral tissue cmo exchange to implant performed on 06/30/[address] Castillo's note: There is concern related to her young age, but her Recurrence Score is the lowest possible in the intermediate range. We discussed the options of chemotherapy followed by endocrine therapy, endocrine therapy alone with tamoxifen, or endocrine therapy alone with ovarian suppression + aromatase inhibitor. As her tumor is at the lowest end of the intermediate risk range the value of chemotherapy would be small, and as the TEXT/SOFT data indicate that tamoxifen alone provides an outcome similar to that of ovarian suppression + AI in low risk women, a mutual decision was made to proceed with treatment with endocrine therapy alone. We discussed her interrupting tamoxifen therapy in 5 years in order to attempt . Previous therapy:tamoxifen. Began 02/2015 Completed 5 years of therapy. No new concerns today. Appetite:It's great. Energy level:It's good. 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 Denies fevers or recent illness. Resp:denies cough or sob Cardiac:denies chest pain/palpitations GI:deneis abd pain, n/v, moving bowels regularly :denies dysuria/hematuria Extrem:denies pain to back/bones/joints Endo:denies hot flashes Neuro:denies symptoms of neuropathy Skin:denies rashes/lesions Heme:denies bleeding, [id number] to date on WEATHER STRIP INSTALLER exam The ROS is otherwise negative. Past medical history, appointments, medications, allergies reviewed. No changes. EXAM: BP 130/82 Pulse (!) 54 Temp 36.7 C (98 F) (Temporal) Wt 68.7 kg (151 lb 8 oz) LMP 03/09/2016 BMI 22.37 kg/m APPEARANCE Well appearing, alert, in no acute distress, well-hydrated, well nourished. HEART RRR with normal S1 and S2, no murmurs LUNG clear to auscultation BREAST FEMALE b/l skin/nipple sparing mastectomy with recon/implants, no surrounding mass/nodule LYMPH NODES No cervical lymphadenopathy, No supraclavicular lymphadenopathy, and No axillary lymphadenopathy. ABDOMEN bowel sounds normoactive, soft, non-tender EXTREMITIES No edema NEURO Awake, alert and oriented x 3, Normal gait, and No involuntary motions. SKIN Skin color, texture, turgor normal, no suspicious rashes or lesions ASSESSMENT/PLAN: 1. Malignant neoplasm of upper-outer quadrant of left breast in female, estrogen receptor positive (HCC) - ICD9: 174.4, V86.0, ICD10: C50.412, Z17.0 Pathologic Stage IA ([id number]) ER+, VA+, HER2-negative Grade 2 invasive ductal carcinoma. - No concerning findings on exam. - Tamoxifen-tolerated well. Completed 5 years of treatment. - Follow up with WEATHER STRIP INSTALLER as scheduled. - Follow up in one year. - Pt. aware to call office with any questions/concerns. The patient indicates understanding of these issues and agrees with the plan. All documentation from previous visit of 07/31/21-Dr. Tapia/myself was copied and pasted, documentation has been reviewed and edited as necessary for today's visit. Corey Mueller APRN.EROS documented in this encounter [facility] History of Past illness Narrative 03-18-2016 Note Date & Type Note Facility 03-18-2016 History of Past i llness Narrative Problem Noted Date Resolved Date Closed nondisplaced fracture of base of fifth metacarpal bone of right hand 03/18/2016 02/09/2020 Post-operative state 04/29/2015 02/09/2020 Left breast mass 12/22/2014 02/09/2020 documented as of this encounter (statuses as of 08/01/2022) [facility] History of Past illness Narrative 03-18-2016 Note Date & Type Note Facility 03-18-2016 History of Past i llness Narrative Problem Noted Date Diagnosed Date Resolved Date Closed nondisplaced fracture of base of fifth metacarpal bone of right hand 03/18/2016 02/09/2020 Post-operative state 04/29/2015 020 Left breast mass 12/22/2014 02/09/2020 documented as of this encounter (statuses as of 07/18/2023) [facility] Evaluation note Note Date & Type Note Facility Evaluation note Diagnosis Malignant neoplasm of upper-outer quadrant of left breast in female, estrogen receptor positive (HCC)- Primary documented in this encounter [facility] Evaluation note Note Date & Type Note Facility Evaluation note Diagnosis Personal history of breast cancer- Primary Personal history of malignant neoplasm of breast documented in this encounter [facility] Evaluation note Note Date & Type Note Facility Evaluation note Diagnosis Pain in right foot Pain in soft tissues of limb documented in this encounter [facility] Work Phone: Evaluation note Note Date & Type Note Facility Evaluation note Diagnosis Encounter for follow-up surveillance of breast cancer- Primary Unspecified follow-up examination documented in this encounter [facility] Summary Purpose Family History No Family History Records FoundNo Family History Records FoundNo Family History Records Found Advance Directives No Advanced Directives Records FoundNo Advanced Directives Records FoundNo Advanced Directives Records Found Reason for Referral Specialty Diagnoses / Procedures Referred By Contac t Referred To Contact Radiology Diagnoses Pain in right foot Procedures XR foot right 3+ views Melody Sanchez, DPReza [address] [place] [address] Referral ID Status Reason Start Date Expiration Date Visits Requested Visits Authorized [id number] Authorized Perform Procedure 12/01/2023 11/30/2024 1 1 Additional Source Comments INFORMATION SOURCE (unrecogn ized section and content) DATE CREATED AUTHOR 10/22/2021 [facility] DATE CREATED AUTHOR AUTHOR'S ORGANIZ ATION 12/07/2023 [facility] DATE CREATED AUTHOR AUTHOR'S ORGANIZ ATION 07/19/2024 [facility] Source Comments (unrecognize d section and content) In the event this informatio n is protected by the Federal Confidentiality of Alcohol and Drug Abuse Patient Records regulations: The Federal rules restrict any use of the information to criminally investigate or prosecute any alcohol or drug abuse patient.[facility] the event this information is protected by the Federal Confidentiality of Alcohol and Drug Abuse Patient Records regulations: The Federal rules restrict any use of the information to criminally investigate or prosecute any alcohol or drug abuse patient.[facility] the event this information is protected by the Federal Confidentiality of Alcohol and Drug Abuse Patient Records regulations: The Federal rules restrict any use of the information to criminally investigate or prosecute any alcohol or drug abuse patient.[facility] Reason for Visit (unrecogniz ed section and content) Reason Comments Established Patient Reason Comments Establish Care 1 year office visit Specialty Diagnoses / Procedures Referred By Contac t Referred To Contact Radiology Diagnoses Pain in right foot Procedures XR foot right 3+ views Melody Sanchez, DPM [address] [facility] [address] [place] [address] Referral ID Status Reason Start Date Expiration Date Visits Requested Visits Authorized [id number] Authorized Perform Procedure 12/01/2023 11/30/2024 1 1 Care Teams (unrecognized sec tion and content) Extension Service Supervisor Relationship Specialty Start Date End Date Amish Jack MD [address] [place], [place] [id number] PCP - General Family Medicine 03/04/16 Luma Loredo RN [address] [place] [address] Specialty Bookie Hematology/Oncology 02/23/15 Luís Castillo MD [address] [place], [place] [id number] Hematology/Oncology 09/08/15 Extension Service Supervisor Relationship Specialty Start Date End Date Amish Jack MD [address] [place], [place] [id number] PCP - General Family Medicine 03/04/16 Luma Loredo RN [address] [place] [address] Specialty Bookie Hematology/Oncology 02/23/15 Luís Castillo MD [address] [place] [address] Hematology/Oncology 09/08/15 Extension Service Supervisor Relationship Specialty Start Date End Date Luma Loredo RN [address] [place] [address] Specialty Bookie Hematology/Oncology 02/23/15 Luís Castillo MD [address] [place], [place] [id number] Hematology/Oncology 09/08/15 FOR RECORDS PERTAINING TO PATIENTS WHO ARE OR HAVE BEEN ENROLLED IN A CHEMICAL DEPENDENCY/SUBSTANCEABUSE PROGRAM, SOME INFORMATION MAY BE OMITTED. This clinical summary was aggregated from multiple sources. Caution should be exercised in using it in the provision of clinical care. This summary normalizes information from multiple sources, and as a consequence, information in this document may materially change the coding, format and clinical context of patient data. In addition, data may be omitted in some cases. CLINICAL DECISIONS SHOULD BE BASED ON THE PRIMARY CLINICAL RECORDS. [employer] [facility]. provides no warranty or guarantee of the accuracy or completeness of information in this document.
== END | disposition home or self-care (01) ==
LOC: MTRAD 10:28
PROVIDERS: PCP Family Medicine; Referring Provider Nurse Practitioner Family; Visit Provider Nurse Practitioner Family
DX: M25.532 Pain in left wrist (principal)
CPT/HCPCS: 73110